=== PATIENT | male | born 1955 | race Caucasian/White ===

== ENCOUNTER → 2019-06-29 15:45 | Outpatient (CLI) | payer MEDICARE, SELFPAY ==
[2019-06-29 17:11] LABS: Protein, Urine (Random) 53.9 mg/dL (<11.9); Protein:Creat Ratio 175 mg/g CRE (0-200)
== END ==
PROVIDERS: Visit Provider Internal Medicine Nephrology
DX: E11.22 Type 2 diabetes mellitus with diabetic chronic kidney disease (principal); N18.9 Chronic kidney disease, unspecified
CPT/HCPCS: 82570; 84156

== ENCOUNTER → 2019-07-06 09:53 | Outpatient (CLI) | payer MEDICARE, SELFPAY ==
--- NOTE | 2019-07-06 09:57 | RDU_ITS ---
Reason For Study: Hypertensive disorder Right Renal Artery Left Renal Artery Right renal artery ostium Left renal artery ostium 84/22.8 118.2/27.5 RSV/EDV. PSV/EDV. Right renal artery proximal Left renal artery proximal PSV/EDV 128.6/27.7 PSV/EDV. 120.5/32.7 . Right renal artery mid 88.8/23 Left renal artery mid 133.7/48.1 PSV/EDV. PSV/EDV . Right renal artery distal Left renal artery distal 155.6/34.9 125.8/22.3 PSV/EDV. PSV/EDV. Right RAR 1.52. Left RAR 1.87. Right Renal Parenchyma Left Renal Parenchyma Upper Pole Medula 34.9/11.6 Left upper pole medulla 31.9/11.8 PSV/EDV. PSV/EDV . Right upper pole medulla EDR 0.33 . Left upper pole medulla EDR 0.37 . Right upper pole medulla R.I. Left upper pole medulla R.I. 0.63 . 0.67 . UP Cortex 26.4/10 PSV/EDV. Upper [place] Cortx 30/9.8 PSV/EDV. Left upper pole cortex EDR 0.38 . Right upper pole cortex EDR 0.33 . Left upper pole cortex R.I. 0.62 . Right upper pole cortex R.I. 0.67 . Left lower Pole medulla 38.3/13.6 Right lower Pole medulla 35.5/11.8 PSV/EDV . PSV/EDV . Left lower pole medulla EDR 0.36 . Right lower pole medulla EDR 0.33 . Left lower pole medulla R.I. 0.64 . Right lower pole medulla R.I. Lower Pole Cortx 31/11.8 PSV/EDV. 0.67 . Left lower pole cortex EDR 0.38 . Lower Pole Cortex 25.2/8.7 PSV/EDV. Left lower pole cortex R.I. 0.62 . Right lower pole cortex EDR 0.35 . Left Renal Hilar Right lower pole cortex R.I. 0.65 . LT Hilar avg 49.2/18.2 PSV/EDV . Right Renal Hilar Left hilar acceleration time 30 Right Hilar avg 48.3/15.4 PSV/EDV. m/sec. Right hilar acceleration time 40 Left Renal Dimensions m/sec. Left kidney size 9.97 cm . Right Renal Dimensions Left cortical dimension 1.29 cm . Right kidney size 9.17 cm . Right cortical dimension 1.28 cm . Aorta Proximal abdominal aorta 1.38 x 1.31 cm . Proximal abdominal aorta peak systolic velocity is 100.2 cm/sec . Distal abdominal aorta 1.11 x 1.13 cm . Distal abdominal aorta peak systolic velocity is 83 cm/sec . Interpretation Summary 0-59% stenosis bilateral renal arteries Normal resistivity indices bilaterally --renal parenchymal disease not identified Right renal length 9.17cm and left renal length 9.97cm both normal Ordering Physician: Magdalena Robert Referring Physician: Katie Chaney Performed By: Vane Fitzpatrick RVT
== END ==
PROVIDERS: Family Provider Nurse Practitioner Primary Care; PCP Nurse Practitioner Primary Care; Referring Provider Internal Medicine Nephrology; Visit Provider Internal Medicine Nephrology
DX: I10 Essential (primary) hypertension (principal)
CPT/HCPCS: 93975

== ENCOUNTER → 2019-08-10 12:21 | Outpatient (CLI) | payer MEDICARE, SELFPAY ==
[2019-08-10 14:00] LABS: Albumin, Serum 3.8 g/dL (3.2-5.0); BUN 17 mg/dL (7-18); BUN/Creat Ratio 12.9 RATIO (10-20); Calcium,Total 9.4 mg/dL (8.5-10.1); Chloride 104 mmol/L (98-107); Creatinine, Serum 1.32 mg/dL (0.70-1.30); EST Glomerular Filtration Rate 58 mL/min (>60); Est Glom Filt Rate - Afr Amer 70 mL/min (>60); Glucose 139 mg/dL (74-106); Phosphorus 2.9 mg/dL (2.5-4.9); Potassium 3.3 mmol/L (3.5-5.1); Sodium Level 138 mmol/L (136-145)
== END ==
PROVIDERS: Family Provider Nurse Practitioner Primary Care; PCP Nurse Practitioner Primary Care; Visit Provider Internal Medicine Nephrology
DX: N17.9 Acute kidney failure, unspecified (principal); N18.3 Chronic kidney disease, stage 3 (moderate); R31.9 Hematuria, unspecified
CPT/HCPCS: 36415; 80069